=== PATIENT | male | born 1955 | race Caucasian/White ===

== ENCOUNTER 2020-12-13 06:13 | Inpatient (IN) | payer BC ==
[2020-12-12 11:43] LABS: BASOPHILS % (AUTO) 0.4 % (0-1); EOSINOPHILS # (AUTO) 0.1 X10'3 (0-0.9); EOSINOPHILS % (AUTO) 1.7 % (0-6); LYMPHOCYTES # (AUTO) 1.1 X10'3 (1.1-4.8); LYMPHOCYTES % (AUTO) 18.5 % (21-51); MEAN CORPUSCULAR HEMOGLOBIN 30.8 PG (27.0-31.0); MEAN CORPUSCULAR HGB CONC 34.1 g/dL (33.0-36.5); MEAN CORPUSCULAR VOLUME 90.4 FL (78-98); MEAN PLATELET VOLUME 9.6 FL (7.4-10.4); MONOCYTES # (AUTO) 0.6 X10'3 (0-0.9); MONOCYTES % (AUTO) 10.2 % (2-12); NEUTROPHILS # (AUTO) 4.1 X10'3 (1.8-7.7); NEUTROPHILS % (AUTO) 69.2 % (42-75); PLATELET COUNT 270 X10'3 (140-440); RED BLOOD COUNT 4.54 X10'6 (4.70-6.10); RED CELL DISTRIBUTION WIDTH 12.5 % (11.5-14.5)
[2020-12-12 11:51] LABS: ANION GAP 9 (8-16); BLOOD UREA NITROGEN 17 MG/DL (7-18); BUN/CREATININE RATIO 17.3 (5.4-32.0); CALCIUM 8.5 MG/DL (8.5-10.1); CHLORIDE 103 MMOL/L (99-107); CREATININE 0.98 MG/DL (0.60-1.10); GLUCOSE 126 MG/DL (70-104); POTASSIUM 3.7 MMOL/L (3.5-5.1); SODIUM 140 MMOL/L (135-145); TOTAL CARBON DIOXIDE 27.9 MMOL/L (24-32); eGFR 77 ML/MIN
[2020-12-12 11:56] LABS: PARTIAL THROMBOPLASTIN TIME 30 SECONDS (22-32)
[2020-12-13] VITALS (11 sets, daily range): BP systolic 101–148; BP diastolic 64–98
[~2020-12-13] VITALS: Ht 177.8 cm; Wt 86.2 kg
[2020-12-13] MEDS ORDERED: diphenhydrAMINE 25mg capsule PO PRN (06:35)
[2020-12-13] MEDS ORDERED: normal saline 1,000 ML IV SCH (06:35)
[2020-12-13] MEDS ORDERED: LORazepam 0.5 MG tablet PO PRN (06:35)
[2020-12-13] MEDS ORDERED: LIDOcaine/PRILOcaine 5gm cream TP ONE (06:35)
[2020-12-13] MEDS ORDERED: IBUP-2697 PO (06:40)
[2020-12-13] MEDS ORDERED: TUMERIC CURCUMIN PO (06:40)
[2020-12-13] MEDS ORDERED: LEG CRAMP RELIEF PO (06:40)
[2020-12-13] MEDS ORDERED: nitroGLYCERIN-Tridil 50MG/D5W 250 ML IV ONE (07:25)
[2020-12-13] MEDS ORDERED: iohexol 350 MG/ML 50ML vial IV ONE (07:26)
[2020-12-13] MEDS ORDERED: midazolam 1 mg/ML 2ml injection ONE (07:26)
[2020-12-13] MEDS ORDERED: LIDOcaine 1% (10mg/ml)w/preservative injection 20ml MDV ONE (07:26)
[2020-12-13] MEDS ORDERED: heparin 1,000unit/ml 10ml vial 10 ML ONE (07:26)
[2020-12-13] MEDS ORDERED: iohexol 350MG/ML 100ml bottle IV ONE (07:26)
[2020-12-13] MEDS ORDERED: verapamil 2.5 mg/ml inj IV ONE (07:26)
[2020-12-13] MEDS ORDERED: fentaNYL/PF 50MCG/1 ML 2ML syringe ONE (07:26)
[2020-12-13 09:07] LABS: ISTAT HGB ART 12.6 g/dl (14.0-18.0); ISTAT Hct ART 37 %PCV (42-52); ISTAT O2 SATURATION ARTERIAL 96 % (95-98); ISTAT SOURCE ART
[2020-12-13 09:17] LABS: ISTAT Hct MIX 36 %PCV (42-52); ISTAT O2 SATURATION MIX VENOUS 71 % (60-80); ISTAT SOURCE VEN
[2020-12-13] MEDS ORDERED: aspirin 81mg tab.chew PO ONE (09:35)
--- NOTE | 2020-12-13 09:44 | NUR ---
, FAZAL Beltran at beside.
[2020-12-13] MEDS: metoprolol tartrate 25mg tablet PO SCH ×2 (09:54→20:28)
[2020-12-13] MEDS: normal saline 1,000 ML IV SCH ×3 (09:56→20:36)
--- NOTE | 2020-12-13 12:00 | NUR ---
Called tele to give report to ABBEY Decker. Bucket Hooker states she will call me back. She is on the phone.
--- NOTE | 2020-12-13 12:04 | NUR ---
Problems reprioritized. Patient report given, questions answered & plan of care reviewed with Brianne POTTER.
--- NOTE | 2020-12-13 12:20 | NUR ---
Pt transferred to 3014B. [place] Stephen R.N. greeted pt in room. Pt ambulated to bathroom, voided. Tele monitor on pt.
[2020-12-13] MEDS ORDERED: ringers solution, lacted 1,000 ML IV ONE (12:25)
--- NOTE | 2020-12-13 12:44 | NUR ---
Page to vascular 9824W Jean. Pt scheduled for CABG 12/14 and needs vein mapping and carotid US. Thanks Cassandra [phone]
--- NOTE | 2020-12-13 12:46 | NUR ---
Page to Respiratory 4190M. Pt scheduled for CABG 12/14 and needs ABG and PFTs. Thanks Cassandra [phone]
--- NOTE | 2020-12-13 12:50 | NUR ---
Page to Radiology 4394G Jean. Pt has CABG scheduled for 12/14 needs 2 view chest xray. Thanks Cassandra [phone]
--- NOTE | 2020-12-13 12:56 | NUR ---
3014B. Jean . Pt in wheelchair ready to go. Cassandra [phone]
[2020-12-13 13:10] LABS: PARTIAL THROMBOPLASTIN TIME 31 SECONDS (22-32)
--- NOTE | 2020-12-13 13:30 | NUR ---
Patient arrived and oriented to room and call light. Cath site no hematoma, sensation intact, cap refill brisk, patient has no complaint of pain.
[2020-12-13 13:31] LABS: ABG BASE EXCESS -0.5 mmol/L (-2.0-2.0); ABG HCO3 23.5 mmol/L (22.0-26.0); ABG OXYGEN SATURATION 96.7 % (94-97); ABG PCO2 (T) 36.6 mmHg (35.0-48.0); ABG PO2 (T) 86.4 mmHg (75.0-100.0); ALLEN'S TEST POSITIVE; FCOHb 0.3 % (0.0-3.9); FMetHb 0.3 % (0.0-1.5); FO2Hb 96.1 % (94-97); TOTAL HEMOGLOBIN 13.2 G/dl (14.0-18.0)
--- NOTE | 2020-12-13 15:42 | NUR ---
cath site no hematoma, no bruising, cap refill brisk, sensation intact, no complaint of pain.
--- NOTE | 2020-12-13 18:27 | NUR ---
Problems reprioritized. Patient report given, questions answered & plan of care reviewed with Corin POTTER.
--- NOTE | 2020-12-13 18:28 | NUR ---
Patient in room PCU 3014. I have received report from ABBEY Trujillo and had the opportunity to ask questions and assume patient care. Patient is sitting up eating dinner, in now obvious discomfort. He is scheduled for a CABG tomorrow, I will continue to monitor.
--- NOTE | 2020-12-13 20:21 | NUR ---
I cld Dr. Galloway to get something to help the patient sleep per patient's request. Per give Xanax 0.25 po HS.
[2020-12-13] MEDS ORDERED: ALPRAZolam 0.25mg tablet PO PRN (20:25)
[2020-12-13] MEDS ORDERED: atorvastatin 20mg tablet PO SCH (21:00)
[2020-12-14] VITALS (12 sets, daily range): BP systolic 99–139; BP diastolic 54–87
--- NOTE | 2020-12-14 00:28 | NUR ---
Problems reprioritized. Patient report given, questions answered & plan of care reviewed with ABBEY Mejia.
--- NOTE | 2020-12-14 00:30 | NUR ---
Patient in room PCU 3014. I have received report from ABBEY Coombs and had the opportunity to ask questions and assume patient care.
[2020-12-14] MEDS: normal saline 1,000 ML IV SCH (03:09)
[2020-12-14] MEDS ORDERED: LORazepam 2 mg/ml vial IV ONE (06:00)
[2020-12-14] MEDS ORDERED: famotidine 20mg tablet PO ONE (06:00)
--- NOTE | 2020-12-14 06:18 | NUR ---
Problems reprioritized. Patient bedside report given, questions answered & plan of care reviewed with ABBEY Resendiz.
--- NOTE | 2020-12-14 06:28 | NUR ---
Patient in room PCU 3014. I have received report from ABBEY Mejia and had the opportunity to ask questions and assume patient care.
[2020-12-14] MEDS: metoprolol tartrate 25mg tablet PO SCH (07:48)
[2020-12-14 07:58] LABS: BASOPHILS % (AUTO) 0.6 % (0-1); EOSINOPHILS # (AUTO) 0.2 X10'3 (0-0.9); LYMPHOCYTES # (AUTO) 1.7 X10'3 (1.1-4.8); LYMPHOCYTES % (AUTO) 30.2 % (21-51); MEAN CORPUSCULAR HEMOGLOBIN 31.4 PG (27.0-31.0); MEAN CORPUSCULAR HGB CONC 33.6 g/dL (33.0-36.5); MEAN CORPUSCULAR VOLUME 93.4 FL (78-98); MEAN PLATELET VOLUME 9.9 FL (7.4-10.4); MONOCYTES # (AUTO) 0.7 X10'3 (0-0.9); MONOCYTES % (AUTO) 13.1 % (2-12); NEUTROPHILS % (AUTO) 53.1 % (42-75); PRE OP HEMATOCRIT 36.1 % (42.0-52.0); PRE OP HEMOGLOBIN 12.1 g/dL (14.0-17.9); PRE OP PLATELET COUNT 209 X10'3 (140-440); RED BLOOD COUNT 3.87 X10'6 (4.70-6.10); RED CELL DISTRIBUTION WIDTH 12.5 % (11.5-14.5)
[2020-12-14] MEDS ORDERED: aspirin 81mg tablet.DR PO SCH (08:00)
[2020-12-14 09:07] LABS: ALBUMIN 3.2 G/DL (3.4-5.0); ALKALINE PHOSPHATASE 41 IU/L (46-116); BLOOD UREA NITROGEN 14 MG/DL (7-18); BUN/CREATININE RATIO 18.2 (5.4-32.0); CALCIUM 7.8 MG/DL (8.5-10.1); CHLORIDE 109 MMOL/L (99-107); CREATININE 0.77 MG/DL (0.60-1.10); PRE OP ALT 20 U/L (30-65); PRE OP ANION GAP 13 (8-16); PRE OP AST 20 U/L (10-37); PRE OP BILIRUB, TOTAL 0.3 MG/DL (0.0-1.0); PRE OP GLUCOSE 96 MG/DL (70-104); PRE OP POTASSIUM 3.9 MMOL/L (3.4-5.1); PRE OP SODIUM 144 MMOL/L (135-145); TOTAL CARBON DIOXIDE 22.5 MMOL/L (24-32); TOTAL PROTEIN 6.3 G/DL (6.4-8.2); eGFR > 90 ML/MIN
[2020-12-14] MEDS ORDERED: MESSAGE TO NURSING PO ONE ×5 (10:00→11:30)
[2020-12-14] MEDS ORDERED: diphenhydrAMINE 25mg capsule PO PRN (11:30)
[2020-12-14] MEDS ORDERED: MALTODEXTRIN/FRUCTOSE 0.68 KCAL/ML LIQUID 296ML BOTTLE PO ONE (11:30)
[2020-12-14] MEDS ORDERED: vancomycin/NS 1 GM ADD-VANTAGE 250 ML IV ONE (11:30)
[2020-12-14] MEDS ORDERED: potassium Cl 20mEq/100mL bag 100 ML IV PRN (11:30)
[2020-12-14] MEDS ORDERED: magnesium 4gm in 100ml NS 100 ML IV PRN ×2 (11:30→16:15)
[2020-12-14] MEDS ORDERED: potassium CL 10mEq/100ml bag 100 ML IV PRN ×2 (11:30→16:15)
[2020-12-14] MEDS ORDERED: HYDROcodone/acetaminophen 5mg/325mg tablet PO PRN (11:30)
[2020-12-14] MEDS ORDERED: magnesium 2GM in 50ml NS 50 ML IV PRN ×2 (11:30→16:15)
[2020-12-14] MEDS ORDERED: potassium Cl 20 mEq SR tablet PO PRN ×2 (11:30→16:15)
[2020-12-14] MEDS ORDERED: ondansetron 4mg rapidly disintigrating tab PO PRN (11:30)
[2020-12-14] MEDS ORDERED: potassium Cl 40MEQ/1/2NS 520ml 520 ML IV PRN ×2 (11:30→16:15)
[2020-12-14] MEDS ORDERED: Insulin Reg/NS 100units/100mL 100 ML IV SCH (11:30)
[2020-12-14] MEDS ORDERED: potassium Cl 40MEQ/250ML bag 250 ML IV PRN ×2 (11:30→16:15)
[2020-12-14] MEDS ORDERED: dextrose 50%-water 50ml dispensing syringe IV PRN ×2 (11:30→16:15)
[2020-12-14] MEDS ORDERED: insulin glargine (Lantus) pen - multi-dose SQ PRN ×2 (11:30→16:15)
[2020-12-14] MEDS ORDERED: cefazolin/dext.iso 2gm/100ml 100 ML IV ONE (11:30)
[2020-12-14] MEDS ORDERED: gabapentin 400mg capsule PO ONE (11:30)
[2020-12-14] MEDS ORDERED: MIDAZolam 1mg/ml 10ml vial ONE (12:09)
[2020-12-14] MEDS ORDERED: fentaNYL /PF 50mcg/ml 5ml ampule ONE ×2 (12:09)
[2020-12-14] MEDS ORDERED: mupirocin 2% nasal ointment 1gm UD NS ONE (12:15)
--- NOTE | 2020-12-14 12:50 | NUR ---
Pt left for OR. All prep complete, all belongings went with .
[2020-12-14] MEDS ORDERED: protamine sulf. 10mg/ml inj. IV ONE (12:54)
[2020-12-14] MEDS ORDERED: heparin 1,000 units/ml 10ml inj ONE ×2 (12:54→13:30)
[2020-12-14] MEDS ORDERED: papaverine 30 mg/ml 2ml inj. ONE (12:54)
[2020-12-14] MEDS ORDERED: nitroGLYCERIN in D5W 50mg/250ml (Tridil) infusion IV ONE (12:54)
[2020-12-14] MEDS ORDERED: sevoflurane 250ml liquid IH ONE (12:54)
[2020-12-14] MEDS ORDERED: DOPamine/D5W 400mg/250ml bag IV ONE (12:54)
[2020-12-14] MEDS ORDERED: ceFAZolin 1000mg inj ONE ×2 (12:54→13:43)
[2020-12-14] MEDS ORDERED: LIDOcaine 1%/PF 5ML 10 MG/ML VIAL ONE (12:54)
[2020-12-14] MEDS ORDERED: calcium chloride 100 MG/1 ML inj IV ONE (13:30)
[2020-12-14] MEDS ORDERED: sodium bicarbonate (8.4%) 1 mEq/ml syringe ONE (13:30)
[2020-12-14] MEDS ORDERED: MAGNESIUM SULFATE 4 MEQ/ML (5gm/10ml) injection ONE (13:30)
[2020-12-14] MEDS ORDERED: heparin 10,000 units/1 ML INJ ONE (13:30)
[2020-12-14] MEDS ORDERED: NORepinephrine 1 mg/ml inj IV ONE (13:30)
[2020-12-14] MEDS ORDERED: albumin (human) 25% 100 ML IV solution IV ONE (13:30)
[2020-12-14] MEDS ORDERED: potassium Cl 2 mEq/ml inj IV ONE (13:30)
[2020-12-14] MEDS ORDERED: methylPREDNISolone sod succ 1000mg vial ONE (13:30)
[2020-12-14] MEDS ORDERED: aminocaproic acid 250 MG/1 ML inj. ONE (13:30)
[2020-12-14 13:32] LABS: ABG BASE EXCESS -0.6 mmol/L (-2.0-2.0); ABG HCO3 23.8 mmol/L (22.0-26.0); ABG OXYGEN SATURATION 99.7 % (94-97); ABG PCO2 38.4 mmHg (35.0-48.0); ABG PO2 311.2 mmHg (75.0-100.0); CL (ABG) 109 mmol/L (98-110); FCOHb 0.2 % (0.0-3.9); FMetHb 0.3 % (0.0-1.5); FO2Hb 99.2 % (94-97); GLUCOSE (ABG) 142 mg/dl (70-105); IONIZED CA (ABG) 1.09 mmol/L (1.10-1.43); K (ABG) 3.6 mmol/L (3.5-5.0); TOTAL HEMOGLOBIN 11.8 G/dl (14.0-18.0)
[2020-12-14] MEDS ORDERED: epiNEPHrine 1 mg/ml inj ONE (13:48)
[2020-12-14] MEDS ORDERED: rocuronium 10mg/ml inj IV ONE ×3 (14:30)
[2020-12-14] MEDS ORDERED: propofol inj 20 ML IV ONE (14:31)
[2020-12-14] MEDS ORDERED: heparin 10,000 units/1 ML INJ IR ONE (14:48)
[2020-12-14] MEDS ORDERED: papaverine 30 mg/ml 2ml inj. IA ONE (14:49)
[2020-12-14 14:59] LABS: ABG BASE EXCESS 1.6 mmol/L (-2.0-2.0); ABG HCO3 25.1 mmol/L (22.0-26.0); ABG OXYGEN SATURATION 99.5 % (94-97); ABG PCO2 34.7 mmHg (35.0-48.0); ABG PO2 449.9 mmHg (75.0-100.0); CL (ABG) 106 mmol/L (98-110); FCOHb 0.3 % (0.0-3.9); FMetHb 0.3 % (0.0-1.5); FO2Hb 98.9 % (94-97); GLUCOSE (ABG) 106 mg/dl (70-105); K (ABG) 3.4 mmol/L (3.5-5.0); TOTAL HEMOGLOBIN 8.4 G/dl (14.0-18.0)
[2020-12-14 15:18] LABS: ABG BASE EXCESS VENOUS 0.7 mmol/L (-2.0 - 2.0); ABG HCO3 VENOUS 25.2 mmol/L (21.0-28.0); ABG PCO2 VENOUS 39.9 mmHg (41.0-54.0); ABG PO2 VENOUS 44.6 mmHg (25.0-35.0); CL (ABG) 107 mmol/L (98-110); FCOHb VENOUS 0.7 %; FHHb VENOUS 17.4 %; FMetHb VENOUS 0.3 % (0.0 - 0.5); FO2Hb VENOUS 81.6 %; GLUCOSE (ABG) 118 mg/dl (70-105); IONIZED CA (ABG) 1.09 mmol/L (1.10-1.43); K (ABG) 4.3 mmol/L (3.5-5.0); TOTAL HEMOGLOBIN 8.9 G/dl (14.0-18.0)
[2020-12-14] MEDS ORDERED: labetalol 20mg/4ml (5mg/ml) syringe IV ONE (15:38)
[2020-12-14 15:41] LABS: ABG BASE EXCESS -0.8 mmol/L (-2.0-2.0); ABG HCO3 23.1 mmol/L (22.0-26.0); ABG OXYGEN SATURATION 99.8 % (94-97); ABG PCO2 35.1 mmHg (35.0-48.0); ABG PO2 377.2 mmHg (75.0-100.0); CL (ABG) 108 mmol/L (98-110); FCOHb 0.1 % (0.0-3.9); FMetHb 0.3 % (0.0-1.5); FO2Hb 99.4 % (94-97); GLUCOSE (ABG) 138 mg/dl (70-105); IONIZED CA (ABG) 1.08 mmol/L (1.10-1.43); K (ABG) 4.1 mmol/L (3.5-5.0); TOTAL HEMOGLOBIN 9.2 G/dl (14.0-18.0)
[2020-12-14 15:59] LABS: ABG HCO3 VENOUS 22.6 mmol/L (21.0-28.0); ABG PCO2 VENOUS 42.6 mmHg (41.0-54.0); ABG PO2 VENOUS 49.5 mmHg (25.0-35.0); CL (ABG) 107 mmol/L (98-110); FCOHb VENOUS 0.1 %; FHHb VENOUS 17.3 %; FMetHb VENOUS 0.3 % (0.0 - 0.5); FO2Hb VENOUS 82.3 %; GLUCOSE (ABG) 149 mg/dl (70-105); K (ABG) 3.7 mmol/L (3.5-5.0); TOTAL HEMOGLOBIN 9.8 G/dl (14.0-18.0)
[2020-12-14 16:02] LABS: ACT @ 1.70 U 343 SEC (193-297); ACT @ 2.84 U 496 SEC (260-420); BASELINE ACT 149 SEC (101-148); PATIENT WEIGHT 85.0k KG
[2020-12-14 16:02] LABS: ACTIVATED CLOTTING TIME 135 SEC (101-148)
[2020-12-14 16:03] LABS: ACT @ 1.70 U 343 SEC (193-297); ACT @ 2.84 U 496 SEC (260-420); BASELINE ACT 149 SEC (101-148); PATIENT WEIGHT 85.0k KG
[2020-12-14] MEDS ORDERED: morphine 4 MG/ML inj SYRINge IV PRN (16:15)
[2020-12-14] MEDS ORDERED: sodium phosphate inj. 30 MMOL in dextrose 5%-water 250 ML IV PRN (16:15)
[2020-12-14] MEDS ORDERED: mineral oil 133ml enema RC PRN (16:15)
[2020-12-14] MEDS ORDERED: nitroGLYCERIN-Tridil 50MG/D5W 250 ML IV SCH (16:15)
[2020-12-14] MEDS ORDERED: magnesium hydroxide 30ml (MOM) UD suspension PO PRN (16:15)
[2020-12-14] MEDS: Insulin Reg/NS 100units/100mL 100 ML IV SCH (16:15)
[2020-12-14] MEDS ORDERED: Neutra Phos packet PO PRN (16:15)
[2020-12-14] MEDS ORDERED: sodium chloride 0.45% 1,000 ML IV SCH (16:15)
[2020-12-14] MEDS ORDERED: bisacodyl 10mg suppository rectal RC PRN (16:15)
[2020-12-14] MEDS ORDERED: magnesium citrate 296ml oral solution PO PRN (16:15)
[2020-12-14] MEDS ORDERED: pantoprazole 40 MG vial IV ONE (16:15)
[2020-12-14] MEDS ORDERED: sodium phosphate inj. 15 MMOL in dextrose 5%-water 250 ML IV PRN (16:15)
[2020-12-14] MEDS ORDERED: acetaminophen 325mg tablet PO PRN ×2 (16:15)
[2020-12-14] MEDS ORDERED: NORepinephrine 8mg/ 250ml NS 250 ML IV PRN (16:15)
[2020-12-14] MEDS ORDERED: metoclopramide 5 mg/ml inj IV PRN (16:15)
[2020-12-14] MEDS ORDERED: niCARDipine-NS 40mg/200ml IVPB 200 ML IV PRN (16:15)
--- NOTE | 2020-12-14 16:30 | NUR ---
Received to room , accompanied by MDs and surgical crew. Placed on ventilator, to patient monitor, arterial line and PA line pressure monitored. Chest tubes to suction at 20 cm. Taveras cath to gravity drainage. Dressings are dry and intact. See assessment record. All vasoactive drugs are infusing via central line.
[2020-12-14 16:57] LABS: ABG HCO3 22.9 mmol/L (22.0-26.0); ABG OXYGEN SATURATION 98.7 % (94-97); ABG PCO2 (T) 43.6 mmHg (35.0-48.0); ABG PO2 (T) 164.7 mmHg (75.0-100.0); FCOHb 0.3 % (0.0-3.9); FMetHb 0.4 % (0.0-1.5); PATIENT TEMPERATURE 36.5; PEEP 5 cm H2O; RESPIRATORY RATE 10 b/min; TIDAL VOLUME 740 mL; TOTAL HEMOGLOBIN 11.4 G/dl (14.0-18.0)
--- NOTE | 2020-12-14 17:00 | NUR ---
pt anxious, restless- calmed, in briefly- updated- cardene on briefly for sbp 150. uo wnl, ci wnl, filling pressures remain as postop. ct output wnl.
[2020-12-14 17:12] LABS: BASOPHILS % (AUTO) 0.2 % (0-1); EOSINOPHILS # (AUTO) 0.1 X10'3 (0-0.9); EOSINOPHILS % (AUTO) 0.4 % (0-6); HEMATOCRIT 31.6 % (42.0-52.0); HEMOGLOBIN 10.4 g/dl (14.0-17.9); LYMPHOCYTES # (AUTO) 0.8 X10'3 (1.1-4.8); LYMPHOCYTES % (AUTO) 5.7 % (21-51); MEAN CORPUSCULAR HEMOGLOBIN 30.6 PG (27.0-31.0); MEAN CORPUSCULAR HGB CONC 32.8 g/dL (33.0-36.5); MEAN CORPUSCULAR VOLUME 93.1 FL (78-98); MEAN PLATELET VOLUME 9.3 FL (7.4-10.4); MONOCYTES # (AUTO) 0.7 X10'3 (0-0.9); MONOCYTES % (AUTO) 5.5 % (2-12); NEUTROPHILS # (AUTO) 11.7 X10'3 (1.8-7.7); NEUTROPHILS % (AUTO) 88.2 % (42-75); PLATELET COUNT 176 X10'3 (140-440); RED BLOOD COUNT 3.39 X10'6 (4.70-6.10); RED CELL DISTRIBUTION WIDTH 12.6 % (11.5-14.5); WHITE BLOOD COUNT 13.3 X10'3 (4.5-11.0)
[2020-12-14 17:32] LABS: ALANINE AMINOTRANSFERASE 17 U/L (12-78); ALBUMIN 2.9 G/DL (3.4-5.0); ALBUMIN/GLOBULIN RATIO 1.3 (1.1-1.5); ALKALINE PHOSPHATASE 32 IU/L (46-116); ANION GAP 9 (8-16); ASPARTATE AMINO TRANSFERASE 22 U/L (10-37); BILIRUBIN,TOTAL 0.4 MG/DL (0.1-1.0); BLOOD UREA NITROGEN 9 MG/DL (7-18); BUN/CREATININE RATIO 13.6 (5.4-32.0); CALCIUM 7.4 MG/DL (8.5-10.1); CHLORIDE 108 MMOL/L (99-107); CREATININE 0.66 MG/DL (0.60-1.10); GLUCOSE 152 MG/DL (70-104); MAGNESIUM 2.5 MG/DL (1.5-2.4); POTASSIUM 3.7 MMOL/L (3.5-5.1); SODIUM 141 MMOL/L (135-145); TOTAL CARBON DIOXIDE 24.1 MMOL/L (24-32); TOTAL PROTEIN 5.2 G/DL (6.4-8.2); eGFR > 90 ML/MIN
[2020-12-14] MEDS: morphine 4 MG/ML inj SYRINge IV PRN ×2 (18:22→21:50)
--- NOTE | 2020-12-14 18:30 | NUR ---
Patient in room CICU 2007. I have received report from Abimbola POTTER and had the opportunity to ask questions and assume patient care. Patient waking up, restless,moves all extremities. Nods head to inquiry regarding pain. Medicated with morphine for a pain level of 7 to 10 per non verbal pain scale. Dr. Beltran at bedside. update given. No new orders at this time. Will continue to monitor closely. Addendum: 12/14/20 at 1940 by Jackie Dinero RN Amended: Links added.
[2020-12-14] MEDS: potassium Cl 20mEq/100mL bag 100 ML IV PRN ×2 (19:32→20:59)
[2020-12-14] MEDS ORDERED: metoprolol tartrate 12.5mg (1/2 tablet) PO SCH (20:00)
[2020-12-14] MEDS: sennosides/docusate sodium tablet PO SCH (20:00)
[2020-12-14] MEDS ORDERED: sod chloride 0.9% 10ml flush syringe IV SCH (20:00)
[2020-12-14] MEDS: mupirocin 2% nasal ointment 1gm UD NS SCH (20:23)
[2020-12-14] MEDS: atorvastatin 10mg tablet PO SCH (20:23)
[2020-12-14] MEDS: gabapentin 300mg capsule PO SCH (20:23)
[2020-12-14] MEDS: albumin (Human) 5% 250ml 250 ML IV PRN ×2 (21:20→22:19)
[2020-12-14 21:37] LABS: ABG BASE EXCESS -1.9 mmol/L (-2.0-2.0); ABG HCO3 22.9 mmol/L (22.0-26.0); ABG OXYGEN SATURATION 95.1 % (94-97); ABG PCO2 (T) 39.7 mmHg (35.0-48.0); ABG PO2 (T) 77.9 mmHg (75.0-100.0); FCOHb 0.3 % (0.0-3.9); FMetHb 0.4 % (0.0-1.5); FO2Hb 94.4 % (94-97); PATIENT TEMPERATURE 37.1; TOTAL HEMOGLOBIN 11.2 G/dl (14.0-18.0)
--- NOTE | 2020-12-14 21:43 | NUR ---
Extubated patient to 4LNC with RT without incident. Tolerating well, able to manage own airway and secretions.
[2020-12-14 22:34] LABS: BASOPHILS % (AUTO) 0.1 % (0-1); EOSINOPHILS % (AUTO) 0 % (0-6); HEMATOCRIT 30.3 % (42.0-52.0); HEMOGLOBIN 10.2 g/dl (14.0-17.9); LYMPHOCYTES # (AUTO) 0.4 X10'3 (1.1-4.8); LYMPHOCYTES % (AUTO) 2.9 % (21-51); MEAN CORPUSCULAR HEMOGLOBIN 30.5 PG (27.0-31.0); MEAN CORPUSCULAR HGB CONC 33.6 g/dL (33.0-36.5); MEAN CORPUSCULAR VOLUME 90.6 FL (78-98); MEAN PLATELET VOLUME 9.2 FL (7.4-10.4); MONOCYTES # (AUTO) 0.8 X10'3 (0-0.9); MONOCYTES % (AUTO) 6.4 % (2-12); NEUTROPHILS # (AUTO) 11.9 X10'3 (1.8-7.7); NEUTROPHILS % (AUTO) 90.6 % (42-75); PLATELET COUNT 186 X10'3 (140-440); RED BLOOD COUNT 3.35 X10'6 (4.70-6.10); RED CELL DISTRIBUTION WIDTH 12.5 % (11.5-14.5); WHITE BLOOD COUNT 13.1 X10'3 (4.5-11.0)
[2020-12-14 22:49] LABS: ALBUMIN 3.2 G/DL (3.4-5.0); ANION GAP 10 (8-16); BLOOD UREA NITROGEN 13 MG/DL (7-18); BUN/CREATININE RATIO 14.1 (5.4-32.0); CALCIUM 7.4 MG/DL (8.5-10.1); CHLORIDE 108 MMOL/L (99-107); CREATININE 0.92 MG/DL (0.60-1.10); GLUCOSE 188 MG/DL (70-104); MAGNESIUM 2.2 MG/DL (1.5-2.4); PHOSPHORUS 3.1 MG/DL (2.3-4.5); POTASSIUM 4.2 MMOL/L (3.5-5.1); SODIUM 141 MMOL/L (135-145); TOTAL CARBON DIOXIDE 22.8 MMOL/L (24-32); eGFR 83 ML/MIN
[2020-12-15] VITALS (24 sets, daily range): BP systolic 85–126; BP diastolic 48–67
[2020-12-15] MEDS: ceFAZolin/D5W- 1GM premix 50 ML IV SCH ×4 (00:05→23:34)
--- NOTE | 2020-12-15 00:28 | NUR ---
Patient appears to be sleeping. Awakens easily, tolerating oral swabs
[2020-12-15] MEDS: potassium Cl 20mEq/100mL bag 100 ML IV PRN ×2 (00:41→01:44)
[2020-12-15] MEDS: morphine 4 MG/ML inj SYRINge IV PRN ×4 (01:10→12:12)
[2020-12-15 04:21] LABS: BASOPHILS % (AUTO) 0.1 % (0-1); EOSINOPHILS % (AUTO) 0 % (0-6); HEMATOCRIT 26.6 % (42.0-52.0); LYMPHOCYTES # (AUTO) 0.5 X10'3 (1.1-4.8); LYMPHOCYTES % (AUTO) 4.7 % (21-51); MEAN CORPUSCULAR HEMOGLOBIN 30.8 PG (27.0-31.0); MEAN CORPUSCULAR HGB CONC 33.7 g/dL (33.0-36.5); MEAN CORPUSCULAR VOLUME 91.4 FL (78-98); MEAN PLATELET VOLUME 9.7 FL (7.4-10.4); MONOCYTES # (AUTO) 0.8 X10'3 (0-0.9); MONOCYTES % (AUTO) 7.8 % (2-12); NEUTROPHILS # (AUTO) 8.6 X10'3 (1.8-7.7); NEUTROPHILS % (AUTO) 87.4 % (42-75); PLATELET COUNT 147 X10'3 (140-440); RED BLOOD COUNT 2.91 X10'6 (4.70-6.10); RED CELL DISTRIBUTION WIDTH 12.4 % (11.5-14.5); WHITE BLOOD COUNT 9.9 X10'3 (4.5-11.0)
[2020-12-15 05:21] LABS: ALANINE AMINOTRANSFERASE 15 U/L (12-78); ALBUMIN 3.2 G/DL (3.4-5.0); ALBUMIN/GLOBULIN RATIO 1.4 (1.1-1.5); ALKALINE PHOSPHATASE 29 IU/L (46-116); ANION GAP 9 (8-16); ASPARTATE AMINO TRANSFERASE 24 U/L (10-37); BILIRUBIN,TOTAL 0.4 MG/DL (0.1-1.0); BLOOD UREA NITROGEN 15 MG/DL (7-18); BUN/CREATININE RATIO 17.6 (5.4-32.0); CALCIUM 7.1 MG/DL (8.5-10.1); CHLORIDE 109 MMOL/L (99-107); CREATININE 0.85 MG/DL (0.60-1.10); GLUCOSE 116 MG/DL (70-104); MAGNESIUM 2.6 MG/DL (1.5-2.4); PHOSPHORUS 3.3 MG/DL (2.3-4.5); POTASSIUM 4.6 MMOL/L (3.5-5.1); SODIUM 141 MMOL/L (135-145); TOTAL CARBON DIOXIDE 22.6 MMOL/L (24-32); TOTAL PROTEIN 5.5 G/DL (6.4-8.2); eGFR > 90 ML/MIN
--- NOTE | 2020-12-15 06:33 | NUR ---
Problems reprioritized. Patient report given, questions answered & plan of care reviewed with Scout POTTER.
[2020-12-15] MEDS: sennosides/docusate sodium tablet PO SCH ×2 (07:36→19:46)
[2020-12-15] MEDS: mupirocin 2% nasal ointment 1gm UD NS SCH ×2 (07:36→19:46)
[2020-12-15] MEDS: gabapentin 300mg capsule PO SCH ×3 (07:36→20:25)
[2020-12-15] MEDS: aspirin 325mg tablet, delayed-release (Ecotrin) PO SCH (07:39)
[2020-12-15] MEDS: metoprolol tartrate 12.5mg (1/2 tablet) PO SCH ×2 (07:39→19:51)
[2020-12-15] MEDS: ondansetron/PF 4mg/2ml inj IV PRN ×2 (08:36→17:37)
[2020-12-15] MEDS: HYDROcodone/acetaminophen 10/325mg tab PO PRN ×2 (10:30→16:20)
[2020-12-15] MEDS ORDERED: ketorolac trometh. 30mg/ml inj. IV ONE (10:50)
--- NOTE | 2020-12-15 11:06 | NUR ---
Nutrition consult: Pt s/p CABG x 4 POD # 1. Pt would benefit from nutrition therapy education once stable. Will continue to follow. Addendum: 12/15/20 at [address] Amended: Links added.
[2020-12-15] MEDS: ferrous sulfate 325mg tablet PO SCH ×2 (12:06→17:38)
[2020-12-15] MEDS: ketorolac tromethamine 15mg/ml inj. IV SCH ×2 (13:18→19:46)
[2020-12-15] MEDS: heparin, porcine 5000 units/ml vial SQ SCH ×2 (16:19→23:34)
[2020-12-15] MEDS: atorvastatin 10mg tablet PO SCH (20:25)
[2020-12-16] VITALS (18 sets, daily range): BP systolic 89–129; BP diastolic 50–78
[2020-12-16] MEDS: Insulin Reg/NS 100units/100mL 100 ML IV SCH (01:28)
[2020-12-16] MEDS: ketorolac tromethamine 15mg/ml inj. IV SCH (02:04)
[2020-12-16 03:59] LABS: BASOPHILS % (AUTO) 0 % (0-1); EOSINOPHILS % (AUTO) 0 % (0-6); HEMATOCRIT 22.4 % (42.0-52.0); HEMOGLOBIN 7.4 g/dl (14.0-17.9); LYMPHOCYTES # (AUTO) 0.8 X10'3 (1.1-4.8); LYMPHOCYTES % (AUTO) 6.2 % (21-51); MEAN CORPUSCULAR HEMOGLOBIN 30.4 PG (27.0-31.0); MEAN CORPUSCULAR VOLUME 92.2 FL (78-98); MEAN PLATELET VOLUME 9.4 FL (7.4-10.4); MONOCYTES # (AUTO) 1.2 X10'3 (0-0.9); NEUTROPHILS # (AUTO) 10.4 X10'3 (1.8-7.7); NEUTROPHILS % (AUTO) 83.8 % (42-75); PLATELET COUNT 156 X10'3 (140-440); RED BLOOD COUNT 2.43 X10'6 (4.70-6.10); RED CELL DISTRIBUTION WIDTH 12.5 % (11.5-14.5); WHITE BLOOD COUNT 12.5 X10'3 (4.5-11.0)
[2020-12-16 04:24] LABS: ALBUMIN 2.7 G/DL (3.4-5.0); ANION GAP 6 (8-16); BLOOD UREA NITROGEN 26 MG/DL (7-18); CALCIUM 7.1 MG/DL (8.5-10.1); CHLORIDE 103 MMOL/L (99-107); CREATININE 1.04 MG/DL (0.60-1.10); GLUCOSE 139 MG/DL (70-104); MAGNESIUM 2.6 MG/DL (1.5-2.4); PHOSPHORUS 4.1 MG/DL (2.3-4.5); POTASSIUM 4.7 MMOL/L (3.5-5.1); SODIUM 135 MMOL/L (135-145); TOTAL CARBON DIOXIDE 26.2 MMOL/L (24-32); eGFR 72 ML/MIN
--- NOTE | 2020-12-16 06:24 | NUR ---
Problems reprioritized. Patient report given, questions answered & plan of care reviewed with ABBEY Stockton & ABBEY Mahajan.
--- NOTE | 2020-12-16 06:40 | NUR ---
Patient in room CICU 2008. I have received report from ABBEY CORREIA, and had the opportunity to ask questions and assume patient care.
[2020-12-16] MEDS ORDERED: furosemide 40mg/4ml inj IV ONE (07:50)
[2020-12-16] MEDS: ceFAZolin/D5W- 1GM premix 50 ML IV SCH (08:00)
[2020-12-16] MEDS: pantoprazole 40mg Tablet.DR PO SCH (08:07)
[2020-12-16] MEDS: gabapentin 300mg capsule PO SCH ×2 (08:07→12:40)
[2020-12-16] MEDS: mupirocin 2% nasal ointment 1gm UD NS SCH (08:07)
[2020-12-16] MEDS: heparin, porcine 5000 units/ml vial SQ SCH ×3 (08:08→23:17)
[2020-12-16] MEDS: ferrous sulfate 325mg tablet PO SCH ×3 (08:08→16:41)
[2020-12-16] MEDS: sennosides/docusate sodium tablet PO SCH ×2 (08:09→20:22)
[2020-12-16] MEDS: aspirin 325mg tablet, delayed-release (Ecotrin) PO SCH (08:09)
--- NOTE | 2020-12-16 08:34 | NUR ---
12/16/20 0800, 5/ bag of ancef 1 gm/50ml administered and entered manually within 48 hours of surgery.
[2020-12-16] MEDS: HYDROcodone/acetaminophen 10/325mg tab PO PRN (10:25)
[2020-12-16] MEDS: metoprolol tartrate 12.5mg (1/2 tablet) PO SCH ×2 (10:25→20:23)
--- NOTE | 2020-12-16 11:57 | NUR ---
MAR CATHETER REMOVED PER MD ORDER.
--- NOTE | 2020-12-16 15:00 | NUR ---
[place]rientee documentation: I have reviewed and agree with all interventions, assessments performed and documented by ABBEY Damon.
--- NOTE | 2020-12-16 15:11 | NUR ---
Patient in room PCU 3022. I have received report from ABBEY Damon and had the opportunity to ask questions and assume patient care.
--- NOTE | 2020-12-16 15:51 | NUR ---
Problems reprioritized. Patient report given, questions answered & plan of care reviewed with ABBEY VALENZUELA.
--- NOTE | 2020-12-16 18:25 | NUR ---
Problems reprioritized. Patient report given, questions answered & plan of care reviewed with ABBEY Jesus.
[2020-12-16] MEDS: atorvastatin 10mg tablet PO SCH (20:23)
[2020-12-16] MEDS: Melatonin 3mg tablet PO SCH (22:20)
[2020-12-17 02:00] VITALS: BP 102/61
--- NOTE | 2020-12-17 06:12 | NUR ---
Patient in room PCU 3022. I have received report from BABEY Jesus and had the opportunity to ask questions and assume patient care.
--- NOTE | 2020-12-17 06:13 | NUR ---
Problems reprioritized. Patient report given, questions answered & plan of care reviewed with Lolis POTTER.
[2020-12-17 07:30] LABS: BASOPHILS % (AUTO) 0 % (0-1); EOSINOPHILS % (AUTO) 0 % (0-6); HEMATOCRIT 24.2 % (42.0-52.0); HEMOGLOBIN 8.1 g/dl (14.0-17.9); LYMPHOCYTES # (AUTO) 0.9 X10'3 (1.1-4.8); LYMPHOCYTES % (AUTO) 7.1 % (21-51); MEAN CORPUSCULAR HEMOGLOBIN 31.4 PG (27.0-31.0); MEAN CORPUSCULAR HGB CONC 33.4 g/dL (33.0-36.5); MEAN CORPUSCULAR VOLUME 94.1 FL (78-98); MEAN PLATELET VOLUME 9.6 FL (7.4-10.4); MONOCYTES # (AUTO) 1.4 X10'3 (0-0.9); MONOCYTES % (AUTO) 10.5 % (2-12); NEUTROPHILS # (AUTO) 10.9 X10'3 (1.8-7.7); NEUTROPHILS % (AUTO) 82.4 % (42-75); PLATELET COUNT 187 X10'3 (140-440); RED BLOOD COUNT 2.57 X10'6 (4.70-6.10); RED CELL DISTRIBUTION WIDTH 12.6 % (11.5-14.5); WHITE BLOOD COUNT 13.3 X10'3 (4.5-11.0)
[2020-12-17] MEDS: aspirin 325mg tablet, delayed-release (Ecotrin) PO SCH (07:39)
[2020-12-17] MEDS: metoprolol tartrate 12.5mg (1/2 tablet) PO SCH ×2 (07:39→21:47)
[2020-12-17] MEDS: sennosides/docusate sodium tablet PO SCH ×2 (07:39→21:47)
[2020-12-17] MEDS: heparin, porcine 5000 units/ml vial SQ SCH ×2 (07:40→16:50)
[2020-12-17 07:51] LABS: ALBUMIN 2.8 G/DL (3.4-5.0); ANION GAP 10 (8-16); BLOOD UREA NITROGEN 23 MG/DL (7-18); BUN/CREATININE RATIO 24.7 (5.4-32.0); CALCIUM 7.4 MG/DL (8.5-10.1); CHLORIDE 106 MMOL/L (99-107); CREATININE 0.93 MG/DL (0.60-1.10); GLUCOSE 133 MG/DL (70-104); MAGNESIUM 2.6 MG/DL (1.5-2.4); POTASSIUM 4.3 MMOL/L (3.5-5.1); SODIUM 142 MMOL/L (135-145); TOTAL CARBON DIOXIDE 26.3 MMOL/L (24-32); eGFR 82 ML/MIN
[2020-12-17] MEDS: ferrous sulfate 325mg tablet PO SCH ×3 (08:12→17:43)
[2020-12-17] MEDS: pantoprazole 40mg Tablet.DR PO SCH (08:12)
--- NOTE | 2020-12-17 08:20 | NUR ---
assumed care from khoa POTTER at aprox 0810. pt a/ox3, stable, no drainage from wound dressings, deny sob ra. eating meal, N releived
--- NOTE | 2020-12-17 10:05 | NUR ---
Ambulate in [place]. Pt only 92% RA amb, drop to 90 in room. deny SOB, pink, applied NC 2L for 94%. enc IS, pt drawing [id number] ml volumes. Set of 10 before amb and after amb. set up in chair post ambulation, pt enthusiastic about IS.
[2020-12-17 11:00] VITALS: BP 104/70
[2020-12-17 17:22] VITALS: BP 112/68
[2020-12-17 18:00] VITALS: BP 133/79
--- NOTE | 2020-12-17 18:30 | NUR ---
Problems reprioritized. Patient report given, questions answered & plan of care reviewed with Ann Marie POTTER.
[2020-12-17] MEDS: atorvastatin 10mg tablet PO SCH (21:46)
[2020-12-17] MEDS: Melatonin 3mg tablet PO SCH (21:46)
[2020-12-17 22:00] VITALS: BP 128/82
[2020-12-18] MEDS: heparin, porcine 5000 units/ml vial SQ SCH ×2 (00:15→08:47)
[2020-12-18] MEDS: HYDROcodone/acetaminophen 10/325mg tab PO PRN ×2 (00:15→11:38)
[2020-12-18 02:00] VITALS: BP 103/68
[2020-12-18 06:00] VITALS: BP 118/72
--- NOTE | 2020-12-18 06:30 | NUR ---
Problems reprioritized. Patient report given, questions answered & plan of care reviewed with Elisa POTTER.
[2020-12-18 06:52] LABS: BASOPHILS % (AUTO) 0.2 % (0-1); EOSINOPHILS # (AUTO) 0.1 X10'3 (0-0.9); HEMATOCRIT 25.1 % (42.0-52.0); HEMOGLOBIN 8.3 g/dl (14.0-17.9); LYMPHOCYTES # (AUTO) 1.9 X10'3 (1.1-4.8); LYMPHOCYTES % (AUTO) 16.8 % (21-51); MEAN PLATELET VOLUME 9.4 FL (7.4-10.4); MONOCYTES # (AUTO) 1.3 X10'3 (0-0.9); MONOCYTES % (AUTO) 11.7 % (2-12); NEUTROPHILS % (AUTO) 70.3 % (42-75); PLATELET COUNT 251 X10'3 (140-440); RED BLOOD COUNT 2.67 X10'6 (4.70-6.10); RED CELL DISTRIBUTION WIDTH 12.6 % (11.5-14.5); WHITE BLOOD COUNT 11.3 X10'3 (4.5-11.0)
[2020-12-18 07:00] LABS: ALBUMIN 2.9 G/DL (3.4-5.0); ANION GAP 6 (8-16); BLOOD UREA NITROGEN 22 MG/DL (7-18); BUN/CREATININE RATIO 24.2 (5.4-32.0); CALCIUM 7.7 MG/DL (8.5-10.1); CHLORIDE 104 MMOL/L (99-107); CREATININE 0.91 MG/DL (0.60-1.10); GLUCOSE 116 MG/DL (70-104); MAGNESIUM 2.4 MG/DL (1.5-2.4); POTASSIUM 4.2 MMOL/L (3.5-5.1); SODIUM 137 MMOL/L (135-145); TOTAL CARBON DIOXIDE 27.3 MMOL/L (24-32); eGFR 84 ML/MIN
[2020-12-18] MEDS: ferrous sulfate 325mg tablet PO SCH ×2 (08:47→11:34)
[2020-12-18] MEDS: aspirin 325mg tablet, delayed-release (Ecotrin) PO SCH (08:47)
[2020-12-18] MEDS: sennosides/docusate sodium tablet PO SCH (08:47)
[2020-12-18] MEDS: metoprolol tartrate 12.5mg (1/2 tablet) PO SCH (08:47)
[2020-12-18] MEDS: pantoprazole 40mg Tablet.DR PO SCH (08:53)
[2020-12-18] MEDS ORDERED: ASPI-611 PO (10:10)
[2020-12-18] MEDS ORDERED: LOP12.5T PO (10:10)
[2020-12-18] MEDS ORDERED: ATOR40TA71 PO (10:10)
[2020-12-18] MEDS ORDERED: HYDR-3965 PO ×2 (10:10→10:57)
[2020-12-18 11:00] VITALS: BP 117/74
--- NOTE | 2020-12-18 13:36 | NUR ---
Nutrition consult: Pt s/p CABG x 4. Pt/ seen by RD for written/verbal CABG ed w/ ensure/[employer] coupons and RD contact information provided. reports has protein powder at home and follow high protein diet at baseline. RD encouraged pt to contact dietitian's office if further questions/concerns. Addendum: 12/18/20 at [address] Amended: Links added.
--- NOTE | 2020-12-18 14:12 | NUR ---
Patient safe for discharge per providers orders. Medication and discharge instructions discussed. Medications called into pharmacy. PIV discontinued cannula intact. Telemetry discontinued. Wheeled to lobby by nursing staff. Patient left in private vehicle with family.
== END 2020-12-18 14:12 | disposition home or self-care (01) | DRG 234 ==
LOC: SSTAY O 06:13 → PCU 3S 11:28 → CICU 2S 12-14 16:49 → PCU 3S 12-16 14:53
PROVIDERS: ADMIT Internal Medicine Cardiovascular Disease; ATTEND Internal Medicine Cardiovascular Disease
PROC: 4A023N8 Measurement of Cardiac Sampling and Pressure, Bilateral, Percutaneous Approach (ICD-10-PCS; principal; 2020-12-13)
PROC: B2111ZZ Fluoroscopy of Multiple Coronary Arteries using Low Osmolar Contrast (ICD-10-PCS; 2020-12-13)
PROC: B2151ZZ Fluoroscopy of Left Heart using Low Osmolar Contrast (ICD-10-PCS; 2020-12-13)
PROC: B3101ZZ Fluoroscopy of Thoracic Aorta using Low Osmolar Contrast (ICD-10-PCS; 2020-12-13)
PROC: 02100Z9 Bypass Coronary Artery, One Artery from Left Internal Mammary, Open Approach (ICD-10-PCS; 2020-12-14)
PROC: 02100Z8 Bypass Coronary Artery, One Artery from Right Internal Mammary, Open Approach (ICD-10-PCS; 2020-12-14)
PROC: 021109W Bypass Coronary Artery, Two Arteries from Aorta with Autologous Venous Tissue, Open Approach (ICD-10-PCS; 2020-12-14)
PROC: 06BQ4ZZ Excision of Left Saphenous Vein, Percutaneous Endoscopic Approach (ICD-10-PCS; 2020-12-14)
PROC: 5A1221Z Performance of Cardiac Output, Continuous (ICD-10-PCS; 2020-12-14)
PROC: B24BZZ4 Ultrasonography of Heart with Aorta, Transesophageal (ICD-10-PCS; 2020-12-14)
PROC: 02HV33Z Insertion of Infusion Device into Superior Vena Cava, Percutaneous Approach (ICD-10-PCS; 2020-12-14)
PROC: B548ZZA Ultrasonography of Superior Vena Cava, Guidance (ICD-10-PCS; 2020-12-14)
PROC: 03HY32Z Insertion of Monitoring Device into Upper Artery, Percutaneous Approach (ICD-10-PCS; 2020-12-14)
DX: I25.110 Atherosclerotic heart disease of native coronary artery with unstable angina pectoris (principal); D62 Acute posthemorrhagic anemia; R73.03 Prediabetes; Z20.822 Contact with and (suspected) exposure to COVID-19; E66.3 Overweight; I10 Essential (primary) hypertension; E78.5 Hyperlipidemia, unspecified; E87.70 Fluid overload, unspecified; I25.82 Chronic total occlusion of coronary artery; Z82.49 Family history of ischemic heart disease and other diseases of the circulatory system; Z68.27 Body mass index [BMI] 27.0-27.9, adult
CPT/HCPCS: 93312; 93325; 93460; 93567; Z7506; Z7508; 36415; 36600; 71045; 71046; 76937; 80048; 80053; 82330; 82435; 82803; 82947; 82948; 83036; 83735; 84100; 84132; 84295; 85014; 85018; 85025; 85347; 85610; 85730; 86885; 86900; 86901; 86920; 87081; 87635; 93005; 93458; 93880; 93971; 94002; 94010; 94667; 94760; 97110; 97116; 97161; 97530; 99152; 99153; A4618; A4620; A5120; A6258; A6446; A6449; A7000; A7048; C1751; C1769; C1894; C9113; G0378; J0171; J0690; J1265; J1644; J1815; J1885; J1940; J2001; J2060; J2150; J2250; J2270; J2405; J2440; J2704; J2720; J2930; J3010; J3370; J3475; J3480; J3490; J7030; J7040; J7050; J7120; P9045; P9047; Q0163; Q9967

== ENCOUNTER 2020-12-20 19:17 | Emergency (ER) | payer BC ==
[~2020-12-20] VITALS: Ht 177.8 cm; Wt 84.5 kg
[~2020-12-20 19:17] MED LIST: ASPI-611 PO; ATOR40TA71 PO; HYDR-3965 PO; IBUP-2697 PO; LEG CRAMP RELIEF PO; LOP12.5T PO; TUMERIC CURCUMIN PO
--- NOTE | 2020-12-20 19:33 | NUR ---
pts luz maria at bedside.
[2020-12-20 19:55] LABS: BASOPHILS # (AUTO) 0.1 X10'3 (0-0.2); BASOPHILS % (AUTO) 0.5 % (0-1); EOSINOPHILS # (AUTO) 0.3 X10'3 (0-0.9); LYMPHOCYTES # (AUTO) 1.4 X10'3 (1.1-4.8); LYMPHOCYTES % (AUTO) 11.7 % (21-51); MONOCYTES # (AUTO) 1.3 X10'3 (0-0.9); NEUTROPHILS % (AUTO) 74.3 % (42-75); RED BLOOD COUNT 3.18 X10'6 (4.70-6.10)
[2020-12-20 19:57] LABS: EOSINOPHILS % (AUTO) 2.6 % (0-6); HEMOGLOBIN 9.9 g/dl (14.0-17.9); MEAN CORPUSCULAR HEMOGLOBIN 31.1 PG (27.0-31.0); MEAN CORPUSCULAR VOLUME 91.3 FL (78-98); MEAN PLATELET VOLUME 9.1 FL (7.4-10.4); MONOCYTES % (AUTO) 10.9 % (2-12); NEUTROPHILS # (AUTO) 9.1 X10'3 (1.8-7.7); PLATELET COUNT 423 X10'3 (140-440); RED CELL DISTRIBUTION WIDTH 12.6 % (11.5-14.5); WHITE BLOOD COUNT 12.3 X10'3 (4.5-11.0)
[2020-12-20] MEDS ORDERED: MELA10TA2 PO (20:00)
[2020-12-20] MEDS ORDERED: [UNRECOGNIZED DRUG - OTHER] PO (20:03)
[2020-12-20] MEDS ORDERED: [UNRECOGNIZED DRUG - OTHER] PO (20:05)
[2020-12-20 20:09] LABS: ALANINE AMINOTRANSFERASE 73 U/L (12-78); ALBUMIN 3.2 G/DL (3.4-5.0); ALBUMIN/GLOBULIN RATIO 0.8 (1.1-1.5); ALKALINE PHOSPHATASE 113 IU/L (46-116); ASPARTATE AMINO TRANSFERASE 30 U/L (10-37); BILIRUBIN,TOTAL 0.6 MG/DL (0.1-1.0); BLOOD UREA NITROGEN 14 MG/DL (7-18); BUN/CREATININE RATIO 14.6 (5.4-32.0); CALCIUM 8.4 MG/DL (8.5-10.1); CREATININE 0.96 MG/DL (0.60-1.10); GLUCOSE 127 MG/DL (70-104); TOTAL CARBON DIOXIDE 25.7 MMOL/L (24-32); TOTAL PROTEIN 7.2 G/DL (6.4-8.2); TROPONIN I 0.05 NG/ML (0.0-0.05); eGFR 79 ML/MIN
[2020-12-20] MEDS ORDERED: metoprolol tartrate 50mg tablet PO ONE (21:20)
[2020-12-20] MEDS ORDERED: metoprolol tartrate 12.5mg (1/2 tablet) PO ONE (21:25)
[2020-12-20 21:29] LABS: ISTAT ANION GAP 14 (8-12); ISTAT BUN 12 mg/dL (7-18); ISTAT CL 101 mmol/L (99-107); ISTAT CREATININE 0.8 mg/dL (0.8-1.3); ISTAT GLUCOSE 116 mg/dL (70-105); ISTAT HGB 8.8 g/dl (14.0-18.0); ISTAT Hct 26 %PCV (42-52); ISTAT K 4.4 mmol/L (3.5-5.1); ISTAT NA 137 mmol/L (135-145); ISTAT TOTAL CO2 22 mmol/L (24-32); ISTAT eGFR > 90 ML/MIN
[2020-12-20 21:45] VITALS: BP 113/82
[2020-12-20 22:07] LABS: ANION GAP 11 (8-16); CHLORIDE 102 MMOL/L (99-107); POTASSIUM 4.4 MMOL/L (3.5-5.1); SODIUM 139 MMOL/L (135-145)
== END 2020-12-20 21:46 | disposition home or self-care (01) ==
LOC: ER 19:17
DX: R00.0 Tachycardia, unspecified (principal); Z79.82 Long term (current) use of aspirin; Z79.899 Other long term (current) drug therapy
CPT/HCPCS: 71045; 80047; 80053; 83880; 84484; 85025; 93005; 99285